=== PATIENT | female | born 1990 | race Caucasian/White ===

== ENCOUNTER 2019-03-24 06:51 | Day surgery (SDC) | payer OTHER ==
[2019-03-20 14:40] LABS: BASOPHILS 0.4 % (0-2); EOSINOPHILS 0.7 % (0-7); HEMATOCRIT 39.6 % (36.0-48.0); HEMOGLOBIN 13.4 g/dL (12-16); IMMATURE GRANULOCYTES 0.7 % (0-5); LYMPHOCYTES 21.2 % (15-50); MCH 30.1 pg (26.0-34.0); MCHC 33.8 g/dL (31.0-37.0); MEAN PLATELET VOLUME 10.9 fL (7.4-10.4); RBC 4.45 10x6/uL (4.00-5.40); RDW 13.1 % (11.5-14.5); WBC 10.8 10x3/uL (4.8-10.8)
[2019-03-20 14:42] LABS: PLATELET COUNT 315 10x3/uL (130-400)
[2019-03-20 15:07] LABS: CALC OSMOLALITY 277 mosm/kg (275-300); CALCIUM 8.7 mg/dL (8.5-10.1); CARBON DIOXIDE 28.7 mmol/L (21.0-32.0); CHLORIDE - SERUM 104 mmol/L (98-107); CREATININE - SERUM 0.6 mg/dL (0.6-1.3); GLUCOSE 89 mg/dL (74-106); SODIUM 141 mmol/L (136-145); UREA NITROGEN 7 mg/dL (7-18); eGFR NON AFRICAN AMERICAN > 90 mL/min (90-120)
[~2019-03-24] VITALS: Ht 152.4 cm; Wt 104.3 kg
[2019-03-24 06:35] VITALS: BP 123/86; BMI 44.8
[~2019-03-24 06:51] MED LIST: EFFEXOR XR150 MG PO; FERROUS SULFAT325 MG PO; IBUPROFEN800 MG PO; PERCOCET 10/3251 TA1 PO; TORADOL10 MG PO
[2019-03-24 07:47] LABS: HCG URINE NEGATIVE (NEGATIVE)
[2019-03-24 14:08] VITALS: BP 124/68
[2019-03-24 16:00] VITALS: BP 113/58
--- NOTE | 2019-03-24 17:22 | NUR ---
I have reviewed this patient and I concur with the Shift Assessment completed by the Licensed Practical Nurse today this shift.
--- NOTE | 2019-03-24 19:41 | NUR ---
PATIENT RESTING IN BED WITH GUEST AT BEDSIDE AND NO S/S OF DISTRESS. BROUGHT PATIENT I.S. AND EDUCATED PATIENT ON HOW TO USE IT. CONNECTED PATIENT'S SCD'S. PATIENT DENIES NEEDS AT THIS TIME. BED IN LOWEST POSITION AND CALL LIGHT WITHIN REACH. ENCOURAGED THE PATIENT TO CALL IF SHE HAS NEEDS. WILL CONTINUE TO MONITOR.
--- NOTE | 2019-03-24 20:11 | NUR ---
SPOKE WITH DR. BEJARANO WHO STATED THE PATIENT NEEDED TO BE UP TO THE CHAIR TONIGHT, HOWEVER, DID NOT HAVE TO AMBULATE THE HALLS. HE ALSO STATED THAT THE PATIENT'S MYERS WOULD BE D/C'D TMRO AND HER PAIN MEDS WOULD BE CHANGED TO PO.
[2019-03-24 20:18] VITALS: BP 120/61
[2019-03-24 20:46] VITALS: BP 120/61; BMI 45.0
--- NOTE | 2019-03-24 21:20 | NUR ---
PATIENT UP TO CHAIR. NO S/S OF DISTRESS.
[2019-03-25] VITALS: BP 107/59
[2019-03-25 04:00] VITALS: BP 105/62
[2019-03-25 07:11] LABS: HEMATOCRIT 34.4 % (36.0-48.0); HEMOGLOBIN 11.2 g/dL (12-16); MCH 29.6 pg (26.0-34.0); MCHC 32.6 g/dL (31.0-37.0); MEAN PLATELET VOLUME 11.3 fL (7.4-10.4); RBC 3.78 10x6/uL (4.00-5.40); RDW 13.3 % (11.5-14.5); WBC 14.6 10x3/uL (4.8-10.8)
[2019-03-25 07:19] LABS: CALC OSMOLALITY 267 mosm/kg (275-300); CALCIUM 7.9 mg/dL (8.5-10.1); CARBON DIOXIDE 31.4 mmol/L (21.0-32.0); CHLORIDE - SERUM 101 mmol/L (98-107); CREATININE - SERUM 0.6 mg/dL (0.6-1.3); GLUCOSE 86 mg/dL (74-106); POTASSIUM - SERUM 4.3 mmol/L (3.5-5.1); SODIUM 136 mmol/L (136-145); UREA NITROGEN 4 mg/dL (7-18); eGFR NON AFRICAN AMERICAN > 90 mL/min (90-120)
--- NOTE | 2019-03-25 07:29 | OP ---
PATIENT NAME: YAZMIN ODELL MEDICAL RECORD: [id number] :89 LOCATION:D.M3 D.1202 ADMISSION DATE: SURGEON: CLAUDE ZUÑIGA MD DATE OF OPERATION: 03/24/2019 PREOPERATIVE DIAGNOSES: 1. Dysmenorrhea. 2. Dyspareunia. 3. Dysfunctional uterine bleeding. POSTOPERATIVE DIAGNOSES: 1. Dysmenorrhea. 2. Dyspareunia. 3. Dysfunctional uterine bleeding. 4. Severe pelvic adhesions. PROCEDURES: 1. Diagnostic laparoscopy. 2. Exploratory laparotomy. 3. Lysis of adhesions. 4. Total abdominal hysterectomy. 5. Left salpingo-oophorectomy. 6. Right salpingectomy. SURGEON: Claude Zuñiga MD TIE LOADER: Lawrence RESISTOR TESTING MACHINE OPERATOR: Дмитрий Griffiths. ANESTHESIA: General. FINDINGS: The uterus was adhesed to the anterior abdominal wall. The right ovary and tubes unremarkable. The left ovary has a small hemorrhagic cyst. What was visualized of the abdominal anatomy at the time of laparoscopy was also unremarkable. SPECIMENS: Uterus with cervix, bilateral tubes, and left ovary. SPECIMEN DISPOSITION: Pathology. ESTIMATED BLOOD LOSS: 200 cc. FLUIDS: 1900 cc lactated Ringer's. URINE OUTPUT: 100 cc of clear urine. COMPLICATIONS: None. DRAIN: Arriaza to gravity. INDICATIONS: The patient is a 29-year-old female using a tubal ligation for control. The patient has had longstanding dyspareunia and dysmenorrhea. The patient has also had cyclic menorrhagia. The patient requests definitive treatment. OPERATIVE REPORT [id number] YAZMIN ODELL DESCRIPTION OF PROCEDURE: After informed consent was assured, the patient was taken to the operating room where anesthetic was obtained without difficulty. The patient was now prepped and draped in the usual sterile fashion. Having been placed in [facility], a uterine manipulator was now placed. It was noted the uterus sounded to 12 cm. The attention was now directed to the abdomen after placement of the uterine manipulator and incision was made at the umbilicus and a trocar inserted. Pneumoperitoneum was developed and the patient was in Trendelenburg position. The uterus was found to be adhesed to the outside of the pelvis in the lower abdomen. The entire anterior surface of the uterus from the fundus to the lower segment was adhesed to the anterior abdominal wall. The cul-de-sac was free of any adhesive disease. At this point, laparoscopic procedure was discontinued. Using a scalpel, a low transverse incision was made on the abdomen, 2 fingerbreadths above the symphysis and carried down to the underlying layer of the fascia. The fascia was opened in the midline and extended out laterally. The rectus bellies were dissected free, superiorly and inferiorly. The peritoneum was entered sharply above the level of the adhesed uterus. Dissection was carried out superiorly and then inferiorly until the fundus was reached. Using Bovie cautery and Metzenbaum scissors, the adhesed uterus was taken down from the anterior abdominal wall. This begins on the right and concludes on the left. Once normal anatomy was restored, the round ligament of the right side was grasped with a [place] clamp, elevated, and stick tied. The Bovie cautery was used to enter the broad ligament through this round ligament. The anterior leaf was dissected to the level of the midline. Posteriorly, a window was developed and the tube was incorporated into the clamp that holds the uterus on its right side. The pedicle that was developed through this window in the posterior leaf of the broad ligament was mobilized with scissors and then a free tie and a [id number]-giy-ddr stitch applied distally for hemostasis. The remaining connective tissue around the right vascular bundle was dissected free. A Ricco-Arlington clamp was placed over the uterine vasculature at the level of the internal os and a straight clamp was placed for backbleeding. This pedicle was developed sharply with Charlton scissors and then a Ricco stitch applied for hemostasis. Attention was now directed to the left side. The left adhesions were continued to take down. This was done with Metzenbaum scissors. A Ricco-Arlington clamp was over the left cornual region and a second clamp was placed lateral to this and the pedicle developed with Charlton scissors. The pedicle was secured with gbbm-gbi-wgf stitch. Dissection continues down the left side and the right round ligament was identified and skeletonized. Round ligament was now stick tied and incised with Bovie cautery. The remaining connective tissue surrounding the left vascular bundle was dissected free. The clamps were placed at the level of the internal os. A straight clamp was used for backbleeding. This pedicle was developed and a stick tie applied. Using clamps, the remaining portions of the cardinal ligament serially clamped, cut and tied on both right and left sides until the level of the uterosacral ligament was reached. A Ricco clamp was placed on the left side and a Ricco-Arlington on the right across the superior aspect of the vagina. Using Jose scissors, the uterus was now removed from its attachment to the vagina. This begins on the right and concludes on the left. Uterus was removed from the field. Cuff was now closed with interrupted cbqjam-ka-[id number] Vicryl stitches. The pelvis was irrigated. The irrigating irrigant removed and bleeding was identified in both right and left corners and these were controlled with 3-0 Vicryl. Some bleeding was noted from the peritoneum of the left side and this was controlled. Attention was now directed to the left ovary and tube that was elevated and the IP identified. Ricco-Arlington clamp was placed over this. The uterus and ovaries now OPERATIVE REPORT [id number] ODELLYAZMIN N removed. Identification on the ureters left side assures its distant location from the operative field. Pelvis again was irrigated, irrigant removed. Sayda was now placed over the lower pelvis and operative field. Rectus bellies were reapproximated in the midline and the fascia was closed. Subcutaneous tissue was irrigated. Bleeding vessels cauterized and skin reapproximated with mariia. Sponge, lap and needle count was correct times 2 at the close of this procedure, patient went to the recovery room in stable condition. TRANSINT:[id number] Voice Confirmation ID: [id number] DOCUMENT ID: [id number] CLAUDE ZUÑIGA MD at 0729 CC: [id number] DICTATION DATE: 03/24/19 1315 TENTER FEEDER: 03/24/19 1337 [facility] [address] [place] [address]
[2019-03-25 10:00] VITALS: Ht 152.4 cm; Wt 104.3 kg
--- NOTE | 2019-03-25 11:17 | NUR ---
PT ALERT X 4. BREATH SOUNDS CLEAR BILAT. ABDOMEN DISTENDED BUT SOFT, TENDER. IV TO LEFT AC, PATENT, DRESSING CDI. PT REPORTING PAIN OF 6/10, KNIFE GLAZER IN PLACE, WILL MONITOR. LUCIA WHEELER'Sarahy PER ORDERS. FAMILY AT BEDSIDE. BED LOW, CALL LIGHT IN REACH. NO OTHER NEEDS AT THIS TIME
--- NOTE | 2019-03-25 19:39 | NUR ---
PATIENT RESTING IN BED WITH GUEST AT BEDSIDE. PATIENT C/0 9/10 PAIN IN BACK AND ABDOMEN. ADMINISTERED TORADOL AND FLEXERIL PER ORDERS. EXPLAINED TO THE PATIENT THAT I WOULD COME BACK AND REASSESS PAIN AT APROX 2014. AT THAT TIME PERCOCET WOULD BE AVAILABLE IF SHE NEEDED IT. PATIENT VERBALIZED UNDERSTANDING. PATIENT DENIES OTHER NEEDS AT THIS TIME. BED IN LOWEST POSITION AND CALL LIGHT WITHIN REACH. ENCOURAGED THE PATIENT TO CALL IF SHE HAS NEEDS. WILL CONTINUE TO MONITOR.
[2019-03-25 19:40] VITALS: BP 119/56
--- NOTE | 2019-03-25 20:24 | NUR ---
PATIENT REQUESTED MEDICATION TO HELP WITH HEARTBURN
--- NOTE | 2019-03-25 20:28 | NUR ---
SPOKE WITH DR. ZUÑIGA IN REGARDS TO PATIENT REQUEST. DR. ZUÑIGA ORDERED A 20 MG PEPCID.
[2019-03-25 23:57] VITALS: BP 114/64
[2019-03-26 04:43] VITALS: BP 110/49
--- NOTE | 2019-03-26 07:15 | NUR ---
PT RESTING IN BED, SHIFT ASSESSMENT PERFORMED. VSS AND WNL. WILL CONT TO FOLLOW POC
[2019-03-26 07:20] VITALS: BP 104/52
--- NOTE | 2019-03-26 08:58 | NUR ---
DISCHARGE INSTRUCTIONS REVIEWED WITH PT AND ALL QUESTIONS ANSWERED, PIV REMOVED WITH CATHETER TIP INTACT. PT TAKEN TO THE FRONT VIA WHEELCHAIR
--- NOTE | 2019-03-26 16:28 | NUR ---
HYDROMORPHONE NURSE ORTHO SYRINGE WASTED 0.2ML WITH SECOND NURSE, FISH REVELES RN WITNESS. DOCUMENTED IN NURSE ORTHO FLOWSHEET AND PYXIS
--- NOTE | 2019-03-26 16:36 | NUR ---
HYDROMORPHONE TECHNICAL DOCUMENT WRITER SYRINGE WASTED 0.2MG WITH SECOND NURSE, FISH REVELES RN WITNESS. DOCUMENTED IN TECHNICAL DOCUMENT WRITER FLOWSHEET AND PYXIS
== END 2019-03-26 11:13 | disposition home or self-care (01) ==
LOC: D.OPS 06:51 → D.PAN 09:40 → D.OPS 09:40 → D.M3 13:23 → D.OPS 03-26 11:13
PROVIDERS: ATTEND Obstetrics & Gynecology
DX: N94.6 Dysmenorrhea, unspecified (principal); N94.10 Unspecified dyspareunia; N93.8 Other specified abnormal uterine and vaginal bleeding; N73.6 Female pelvic peritoneal adhesions (postinfective)

== ENCOUNTER 2020-01-22 23:05 | Emergency (ER) | payer OTHER ==
[~2020-01-22] VITALS: Ht 152.4 cm; Wt 104.5 kg
[2020-01-22 23:11] VITALS: BP 153/73; Ht 152.4 cm; Wt 104.5 kg
[2020-01-22] MEDS ORDERED: CELEXA40 MG PO (23:12)
[2020-01-22] MEDS ORDERED: KEFLEX500 MG PO (23:24)
[2020-01-22] MEDS ORDERED: DICLOFENAC SODI50 MG PO (23:24)
== END 2020-01-23 00:37 | disposition home or self-care (01) ==
LOC: D.ER 23:05
DX: S81.012A Laceration without foreign body, left knee, initial encounter (principal); W01.10XA Fall on same level from slipping, tripping and stumbling with subsequent striking against unspecified object, initial encounter; Y93.9 Activity, unspecified; Y92.9 Unspecified place or not applicable; M25.562 Pain in left knee; K21.9 Gastro-esophageal reflux disease without esophagitis